=== PATIENT | female | born 1945 | race Caucasian/White ===

== ENCOUNTER → 2025-04-06 09:35 | Outpatient (REF) | payer OTHER, MEDICARE, SELFPAY ==
[2025-04-06 12:13] LABS: Hematocrit 37.2 % (37.0-47.0); Hemoglobin 10.9 g/dL (12.0-16.0); Mean Corp Hgb Conc. 29.3 g/dL (33.0-37.0); Mean Corpuscular Volume 84.2 fL (81.0-99.0); Nucleated Red Blood Cells % 0 %; Platelet Count 220 10^3/uL (130-400); Red Cell Dist. Width 16.7 % (11.5-14.5)
[2025-04-06 12:32] LABS: ALT (SGPT) 28 U/L (0-35); AST (SGOT) 28 U/L (14-36); Albumin 3.7 g/dl (3.5-5.0); Alkaline Phosphatase 157 U/L (38-126); Blood Urea Nitrogen 18 mg/dl (7-17); Calcium 8.7 mg/dl (8.4-10.2); Carbon Dioxide 27 mmol/L (22-30); Chloride 108 mmol/L (98-107); Glucose 107 mg/dl (70-99); HDL Cholesterol 32 mg/dl; Iron 51 ug/dl (37-170); LDL Cholesterol, Calculated 64 mg/dl; Potassium 3.6 mmol/L (3.5-5.1); Sodium 140 mmol/L (135-145); Total Protein 6.4 g/dl (6.3-8.2); Very Low Density Lipoprotein 13 mg/dl (0-30); eGFR > 60.00
[2025-04-06 12:41] LABS: Total Iron Binding Capacity 422 ug/dl (265-497)
[2025-04-06 13:03] LABS: TSH 3.51 uIU/ml (0.47-4.68)
[2025-04-06 13:55] LABS: Ferritin 35.2 ng/ml (11.1-264.0)
== END ==
LOC: OLABBH 09:35
PROVIDERS: ATTENDING PHYSICIAN Hospitalist
DX: E78.5 Hyperlipidemia, unspecified (principal); I10 Essential (primary) hypertension; D50.9 Iron deficiency anemia, unspecified
CPT/HCPCS: 36415; 80053; 80061; 82728; 83540; 83550; 84443; 85025

== ENCOUNTER → 2025-05-04 12:41 | Outpatient (REF) | payer OTHER, SELFPAY ==
[2025-05-04 13:32] LABS: Blood Urea Nitrogen 13 mg/dl (7-17); Calcium 9.0 mg/dl (8.4-10.2); Carbon Dioxide 29 mmol/L (22-30); Chloride 105 mmol/L (98-107); Glucose 90 mg/dl (70-99); Potassium 3.7 mmol/L (3.5-5.1); Sodium 141 mmol/L (135-145); eGFR > 60.00
== END ==
LOC: OLABBH 12:41
PROVIDERS: ATTENDING PHYSICIAN Hospitalist
DX: I48.91 Unspecified atrial fibrillation (principal); R60.9 Edema, unspecified; J44.9 Chronic obstructive pulmonary disease, unspecified
CPT/HCPCS: 36415; 80048